=== PATIENT | female | born 1985 | race American Indian/Alaskan Native ===

== ENCOUNTER 2018-05-15 17:02 | Outpatient (CLI) | payer MEDICAID ==
--- NOTE | 2018-05-15 17:20 | Emergency Department Report ---
Chief Complaint: Nausea/Vomiting/Diarrhea Stated Complaint: VOMITING/DIARRHEA LAST 3 DAYS Time Seen by Provider: 05/15/18 17:18 - HPI History of Present Illness: 32 W PREG ABD PAIN AND BACK PAIN MOVEMENT WATERY DC TODAY G1 EDC 07-14-18 TO OB GIVEN WATERY VAG DC AND BACK PAIN MSE COMPLETED-- TO OB MSE screening note: Focused history and physical exam performed. Due to findings the following was ordered: ED Disposition for MSE Condition: Stable
[2018-05-15] MEDS ORDERED: LACTATED RINGERS 1,000 ML IV ONE (17:57)
[2018-05-15 18:04] VITALS: BP 130/60
[2018-05-15 18:28] LABS: Bacteria,Urine 1+ /HPF (Negative); Bilirubin,Urine NEG (Negative); Blood,Urine NEG (Negative); Color,Urine Yellow (Yellow); Mucus,Urine FEW /HPF; Protein,Urine <15 mg/dL mg/dL (Negative)
[2018-05-15] MEDS ORDERED: IMODIUM A-D PO PRN (18:37)
== END 2018-05-15 20:10 | disposition home or self-care (01) ==
LOC: EDSTATUS 17:34 → TRG 17:44
PROVIDERS: ATTEND Obstetrics & Gynecology
DX: O47.03 False labor before 37 completed weeks of gestation, third trimester (principal); O99.513 Diseases of the respiratory system complicating pregnancy, third trimester; O24.419 Gestational diabetes mellitus in pregnancy, unspecified control; Z3A.31 31 weeks gestation of pregnancy
CPT/HCPCS: 81001